=== PATIENT | female | born 1980 | race Caucasian/White ===

== ENCOUNTER → 2017-04-01 | Outpatient (CLI) | payer OTHER ==
--- NOTE | 2017-04-02 05:09 | RAD ---
Procedure: XR ABDOMEN 2 VIEWS SUPINE ERECT Exam Date: 04/01/2017 Ordering Provider: JESSICA CANAS Clinical Indication: DIARRHEA Comparison: 05/03/1716 CT abdomen pelvis Findings: Surgical clips in the right upper quadrant. There is no small or large bowel distention. Retained stool in the right colon. There is no pneumoperitoneum. There are no suspicious calcifications. Pelvic phleboliths. There is no acute skeletal abnormality. Impression: 1. No acute findings. Electronically signed by: Primo Walter MD 04/02/2017 5:08 AM CDT
== END | disposition home or self-care (01) ==
LOC: RAD 14:58
PROVIDERS: ATTEND Nurse Practitioner Acute Care
DX: R19.7 Diarrhea, unspecified (principal)

== ENCOUNTER → 2017-07-06 | Outpatient (CLI) | payer OTHER | END | disposition home or self-care (01) | LOC: LAB.O 23:47 | PROVIDERS: ATTEND Nurse Practitioner Acute Care | DX: R55 Syncope and collapse (principal) ==

== ENCOUNTER → 2019-08-03 | Outpatient (CLI) | payer OTHER | LOC: LAB.O 08:38 | PROVIDERS: ATTEND Nurse Practitioner Acute Care | DX: D50.9 Iron deficiency anemia, unspecified (principal); E03.9 Hypothyroidism, unspecified; E53.8 Deficiency of other specified B group vitamins ==

== ENCOUNTER → 2019-08-08 | Outpatient (CLI) | payer OTHER | LOC: LAB.O 10:19 | PROVIDERS: ATTEND Nurse Practitioner Acute Care | DX: D50.9 Iron deficiency anemia, unspecified (principal); D64.9 Anemia, unspecified; K21.9 Gastro-esophageal reflux disease without esophagitis ==

== ENCOUNTER → 2020-03-20 | Outpatient (CLI) | payer BC ==
--- NOTE | 2020-03-20 12:41 | MAM ---
EXAM DESCRIPTION: 3D Screening BILATERAL : Digital Mammography. CLINICAL HISTORY: 39 years Female ANNUAL SCREENING . No complaints. No personal or family history of breast cancer. Menarche age 13. Childbirth age 23. Premenopausal. No HRT. Lifetime risk of developing breast cancer (Tyrer-Cuzick model)(%): 10.1. COMPARISON: Baseline study at this facility. No prior reports available. TECHNIQUE: Bilateral CC and MLO projection full-field images, digital tomosynthesis mammographic technique. Bilateral digital 2-D full-field MLO images. CAD available for 2-D images. FINDINGS: The breast parenchymal density pattern is: Scattered areas of fibroglandular density. No skin thickening or nipple retraction. Skin mole markers left breast. Mass density just inferior to the posterior nipple line anterior third left breast 8:30 clock position 5 cm from the nipple. Possible lymph node. Margins not completely circumscribed. No new focal, stellate mass or density, focal asymmetry , and no suspicious microcalcifications right breast. IMPRESSION: BI-RADS CATEGORY: 0 - INCOMPLETE- Need additional imaging evaluation. RECOMMENDATIONS: FOLLOW-UP: Recall for additional imaging: Directed left breast ultrasound region of interest. Optional diagnostic left breast tomosynthesis images depending on ultrasound findings.. Written communication concerning the IMPRESSION and Follow-up, will be mailed to the patient and referring health care provider. Electronically signed by: Jame Aj MD 03/20/2020 12:39 PM CDT
== END ==
LOC: MAMMO 08:48
PROVIDERS: ATTEND Family Medicine
DX: Z12.31 Encounter for screening mammogram for malignant neoplasm of breast (principal)

== ENCOUNTER 2020-11-16 21:53 | Emergency (ER) | payer BC ==
[2020-11-16 22:29] VITALS: TEMP 97.9
--- NOTE | 2020-11-16 22:33 | ED.PDOC ---
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 Patient's has been feeling achy and weak for the past several days and on was diagnosed with Covid. Her symptoms persisted and was not worsening until today at 1600 when she developed 7/10 sharp right-sided chest discomfort. Patient denies history of PE or CAD. She has an occasional dry cough and has mild shortness of breath but no worse than this past week. Patient denies fever, chills, nausea, vomiting. She is otherwise asymptomatic. - History of Present Illness Allergies/Adverse Reactions: Allergies Sulfa Drugs Allergy (Unknown, Verified 11/16/20 22:29) Home Medications: Ambulatory Orders Aspirin/Acetaminophen/Caffeine [Excedrin Migraine] 2 ea PO DAILY PRN 05/10/16 Omeprazole Magnesium [Prilosec Otc] 40 mg PO DAILY 05/10/16 Rizatriptan Benzoate [Maxalt] 10 mg PO PRN PRN 11/16/20 Review of Systems - Review of Systems Constitutional: States: malaise, weakness. Denies: chills, fever EENTM: States: no symptoms reported Respiratory: States: cough, short of breath Cardiology: States: chest pain. Denies: palpitations Gastrointestinal/Abdominal: States: no symptoms reported. Denies: abdominal pain, nausea, vomiting Genitourinary: States: no symptoms reported. Denies: dysuria Musculoskeletal: States: muscle pain Skin: States: no symptoms reported. Denies: rash All other Systems: Reviewed and Negative Past Medical History (General) - Patient Medical History Hx Seizures: No Hx Stroke: No Hx Dementia: No Hx Asthma: No Hx of COPD: No Hx Cardiac Disorders: No Hx Congestive Heart Failure: No Hx Pacemaker: No Hx Hypertension: No Hx Thyroid Disease: No Hx Diabetes: No Hx Gastroesophageal Reflux: Yes Hx Renal Disease: No Hx Cancer: No Hx of HIV: No Hx Hepatitis C: No Hx MRSA: No Surgical History: cholecystectomy - Vaccination History Hx Tetanus, Diphtheria Vaccination: No Hx Influenza Vaccination: Yes Hx Pneumococcal Vaccination: No - Social History Hx Tobacco Use: No Hx Chewing Tobacco Use: No Hx Alcohol Use: Yes - occ. Hx Substance Use: No Hx Substance Use Treatment: No Hx Depression: No Hx Physical Abuse: No Hx Emotional Abuse: No Hx Suspected Abuse: No - Female History Patient : No Family Medical History - Family History Grandparents Living Status: Still Living Hx Cardiac Disease: Yes - bipass Father Living Status: Still Living Hx Family Hypertension: Yes Hx Family Cancer: Yes - kidney Physical Exam - Physical Exam General Appearance: Alert, Comfortable, No apparent distress, Well Developed, Well Nourished Eyes, Ears, Nose, Throat Exam: normal ENT inspection Neck: supple, normal inspection Respiratory: chest non-tender, lungs clear, normal breath sounds, no respiratory distress, no accessory muscle use, other - Occasional dry cough Cardiovascular/Chest: normal peripheral pulses, regular rate, rhythm, no edema, no gallop, no JVD, no murmur Peripheral Pulses: radial,right: 2+, radial,left: 2+ Gastrointestinal/Abdominal: normal bowel sounds, non tender, soft Extremity: non-tender, normal inspection, no pedal edema Neurologic: cardiac cath lab technologist II-XII nml as tested, no motor/sensory deficits, alert, normal mood/affect, oriented x 3 Skin Exam: normal color, warm/dry Progress - Progress Progress: 11/16/20 22:34 Differential diagnosis includes but is not limited to PE, chest wall pain, pneumonia, ACS 11/16/20 22:35 EKG: Normal sinus rhythm, rate 67, normal axis, normal QRS, normal ST segment, normal T wave, negative STEMI 11/16/20 23:59 Patient is feeling better at this time and her discomfort has all but resolved. Patient's D-dimer and troponin are negative and her labs are otherwise unremarkable. Patient's chest x-ray was read as questionable left-sided haziness the patient is having no left-sided symptoms, her chest discomfort was on the right. I believe that this haziness is from patient's body habitus and overlying breast tissue. It may however be early Covid pneumonia and I have discussed this possibility with patient. Patient's oxygen saturation is 98% on room air and she is not short of breath and is safe for discharge with recovery and follow-up outpatient, she does not require hospitalization. Vital signs stable, patient is NAD and looks clinically well and I believe is safe for discharge with outpatient follow-up. Follow-up instructions, discharge instruc tions and return to ED precautions discussed with patient. Patient voices understanding and willingness to comply with instructions. All laboratory and/or radiographic results have been discussed with the patient, and all questions answered. Patient is happy with plan. Departure - Departure Clinical Impression: COVID-19, Right-sided chest pain Time of Disposition: 00:02 Disposition: Discharge to Home or Self Care Condition: Good Departure Forms: ED Discharge - Pt. Copy, Patient Portal Self Enrollment Instructions: DI for Chest Pain, Coronavirus Disease 2019 (COVID-19) (DC) Referrals: Grady Pressley MD [Primary Care Provider] - 1-5 Days Home Medications: Ambulatory Orders Aspirin/Acetaminophen/Caffeine [Excedrin Migraine] 2 ea PO DAILY PRN 05/10/16 Omeprazole Magnesium [Prilosec Otc] 40 mg PO DAILY 05/10/16 Rizatriptan Benzoate [Maxalt] 10 mg PO PRN PRN 11/16/20
[2020-11-16] MEDS: KETOROLAC TROMETHAMINE INJ 30 MG/ML VIAL IV ONE (22:40)
--- NOTE | 2020-11-16 23:24 | RAD ---
EXAM: Chest,1 View 11/16/2020 at 10:59 PM HISTORY: Chest pain COMPARISON: Chest 1 View AP 05/10/2016 CTA chest 05/10/2016 TECHNIQUE: Chest 1 View AP FINDINGS: Mild decreased inspiration (decreased lung volumes). Evaluation more difficult due to patient body habitus. Moderate haziness of left mid/lower lung field. No pleural effusion, lung mass, or pneumothorax. Right clavicle midshaft deformity reidentified and may represent old healed fracture. IMPRESSION: New moderate left mid/lower lung field haziness. This may represent asymmetric overlying breast/chest wall attenuation artifact, focal airspace pulmonary edema, subsegmental atelectasis, and/or infection. Follow up chest radiograph 2 views (PA and lateral) in upright position with full inspiration in radiology department may be helpful. Electronically signed by: Primo Lora MD 11/16/2020 11:22 PM [facility]
[2020-11-17 00:05] VITALS: BP 105/62; O2SAT 98
== END 2020-11-17 00:12 | disposition home or self-care (01) ==
LOC: ER 21:53
DX: U07.1 COVID-19 (principal); R07.9 Chest pain, unspecified; K21.9 Gastro-esophageal reflux disease without esophagitis; Z79.82 Long term (current) use of aspirin; Z79.899 Other long term (current) drug therapy; Z88.2 Allergy status to sulfonamides